=== PATIENT | male | born 1940 | race Caucasian/White ===

== ENCOUNTER 2016-10-20 09:01 | Inpatient (IN) | payer MEDICARE ==
[~2016-10-20] VITALS: Ht 180.3 cm; Wt 75.0 kg
[~2016-10-20 09:01] MED LIST: ARIC5TAB PO; BACT800T5 PO; BENA20 PO; CITA20TA4 PO; FIBETAB PO; NIFE1TAB86 PO; OMEG5CAP PO; OMEP20TA39 PO; PROS5TAB2 PO; SUCR1TAB PO; TAB-TAB PO; TAMS0.4C67 PO
[2016-10-20 09:03] VITALS: BP 216/108; PULSE 86; RESP 20; TEMP 97.7; O2SAT 93
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
[2016-10-20 09:39] VITALS: BP 184/106; PULSE 80; RESP 14; TEMP 98.3; O2SAT 94
[2016-10-20 10:30] LABS: AUTOMATED NEUTROPHIL # 16.3 TH/MM3 (1.8-7.7); BASOPHIL % 0.3 % (0.0-2.0); HEMATOCRIT 42.7 % (39.0-51.0); HEMO FLAGS DIFF FINAL; LYMPH % 4.5 % (9.0-44.0); LYMPHOCYTE # 0.8 TH/MM3 (1.0-4.8); MEAN CELL VOLUME 92.4 FL (80.0-100.0); MEAN CORPUSCULAR HEMOGLOBIN 31.5 PG (27.0-34.0); MONO % 5.8 % (0.0-8.0); NEUT % 89.4 % (16.0-70.0); PLATELET COUNT 354 TH/MM3 (150-450); RED BLOOD COUNT 4.62 MIL/MM3 (4.50-5.90); WHITE BLOOD COUNT 18.3 TH/MM3 (4.0-11.0)
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
[2016-10-20 10:38] LABS: PROTHROMBIN TIME - PATIENT 10.7 SEC (9.8-11.6)
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
[2016-10-20] MEDS ORDERED: SODIUM CHLOR 0.9% 1000 ML INJ 1,000 ML IV SCH (10:44)
[2016-10-20] MEDS ORDERED: NALOXONE HCL 0.4 MG/ML AMP IV PRN (10:45)
[2016-10-20] MEDS ORDERED: ACETAMINOPHEN/HYDROcodone 325 MG/5 MG TAB PO PRN (10:45)
[2016-10-20] MEDS ORDERED: HYDROmorphone HCL PF 1 MG/ML VIAL IV PUSH PRN (10:45)
[2016-10-20] MEDS ORDERED: ACETAMINOPHEN 325 MG TAB PO PRN (10:45)
[2016-10-20] MEDS ORDERED: SODIUM CHLORIDE 0.9% FLUSH 10 ML FLUSH IV FLUSH PRN (10:45)
[2016-10-20] MEDS ORDERED: ONDANSETRON HCL 4 MG/2 ML VIAL IVP PRN (10:45)
[2016-10-20] MEDS ORDERED: MAGNESIUM HYDROXIDE SUSP 30 ML CUP PO PRN (10:45)
[2016-10-20 10:52] LABS: BICARBONATE 26.5 MEQ/L (21.0-32.0)
[2016-10-20 10:53] LABS: POTASSIUM 4.4 MEQ/L (3.5-5.1)
[2016-10-20 11:30] VITALS: O2SAT 94
[2016-10-20] MEDS ORDERED: COLA100C3 PO (11:30)
[2016-10-20] MEDS ORDERED: HYDR-3516 PO (11:30)
[2016-10-20 12:12] VITALS: BP 213/129; PULSE 84; RESP 14; O2SAT 95
--- NOTE | 2016-10-20 12:22 | HHI.FF ---
Face to Face Verification Diagnosis: (1) Dementia (2) Fall (3) Clavicular fracture (4) Fracture, facial bones (5) Subarachnoid bleed Physical Therapy Order: Evaluate and Treat Occupational Therapy Order: Evaluate and Treat Home Health Nursing Order: Medical education Wound care and dressing changes Nursing assessment with vital signs Home Health Aide Order: To Assist In: Bathing and personal care, knot picker cloth and meal prep Stubber Order: To Evaluate: Support services Order: To Provide: Community services I have seen patient Dominik Bragg Jr Isaias on 10/20/16. My clinical findings support the need for the requested home health care services because: Fall, multiple facial fractures, right clavicular fracture, small subarachnoid hemorrhage and a fall risk. Patient lives by himself and unable to take care of himself Limited ability to care for self I certify that my clinical findings support that this patient is homebound because: Fall, multiple facial fractures, right clavicular fracture, small subarachnoid hemorrhage and a fall risk. Patient lives by himself and unable to take care of himself Unsteady gait/balance Gretel Roman MD October 20, 2016 12:22
--- NOTE | 2016-10-20 12:24 | HHI.PR ---
Addendum to Inpatient Note Additional Information ED physician contacted me regarding admitting Mr. Wright. We placed initial orders for admissions. I have not evaluated this patient myself. However, after further imaging studies were done, a SDH was detected which was reviewed by Neurosurgery. Discussed with ED provider again and she spoke to Dr. Akbar. Per neurosurgery, no hospital admission needed for this patient's SDH. Maxillofacial surgery also reviewed images and determined no in-patient intervention required. Thus, ED physician decided to discharge patient from the ED. Should the plan change, ED will let me know, we will be happy to help anyway we can. Gerardo Helms DO October 20, 2016 12:24
[2016-10-20 13:29] VITALS: BP 172/86
[2016-10-20] MEDS ORDERED: SODIUM CHLORIDE 0.9% FLUSH 10 ML FLUSH IV FLUSH SCH (21:00)
[2016-10-21 22:36] VITALS: O2SAT 96
== END 2016-10-20 13:30 | disposition home or self-care (01) | DRG 124 ==
LOC: NEPC 09:01 → NEDA 10:41
PROVIDERS: ADMIT Hospitalist; ATTEND Hospitalist
DX: S02.31XA Fracture of orbital floor, right side, initial encounter for closed fracture (principal); S06.6X0A Traumatic subarachnoid hemorrhage without loss of consciousness, initial encounter; S02.40CA Maxillary fracture, right side, initial encounter for closed fracture; F03.90 Unspecified dementia, unspecified severity, without behavioral disturbance, psychotic disturbance, mood disturbance, and anxiety; S02.2XXA Fracture of nasal bones, initial encounter for closed fracture; S42.021A Displaced fracture of shaft of right clavicle, initial encounter for closed fracture; I10 Essential (primary) hypertension; K21.9 Gastro-esophageal reflux disease without esophagitis; N40.0 Benign prostatic hyperplasia without lower urinary tract symptoms; F32.9 Major depressive disorder, single episode, unspecified; F41.9 Anxiety disorder, unspecified; V18.0XXA Pedal cycle driver injured in noncollision transport accident in nontraffic accident, initial encounter; Z85.828 Personal history of other malignant neoplasm of skin; Z87.891 Personal history of nicotine dependence
CPT/HCPCS: 70450; 70486; 80048; 85025; 85610; 86850; 86900; 86901

== ENCOUNTER → 2016-10-28 | Day surgery (SDC) | payer MEDICARE ==
[~2016-10-28] MED LIST changes: +BUPIVACAINE HCL PF 0.75% 30 ML VIAL ONE; +BUPIVACAINE/EPINEPHRINE 0.5% 50 ML VIAL ONE; +COLA100C3 PO; +GENTAMICIN SULFATE 80 MG/2 ML VIAL ONE; +HYDR-3516 PO; +LACTATED RINGER'S 1,000 ML BAG IV ONE; +LACTATED RINGER'S 1000 ML INJ 1,000 ML ONE; +LIDOCAINE 1.5%/EPINEPHrine 1:200,000 PF SOLN 30 ML AMP NERV BLOCK ONE; +MIDAZOLAM HCL 2 MG/2 ML VIAL ONE; +PROPOFOL 500 MG/50 ML BTL IV ONE; +ceFAZolin INJ 1,000 MG VIAL ONE
--- NOTE | 2016-10-29 13:40 | MP ---
cc: SPENCER RED DATE OF SURGERY October 28, 2016. PREOPERATIVE DIAGNOSIS Right clavicle fracture. POSTOPERATIVE DIAGNOSIS Right clavicle fracture. SURGEON Spencer Red MD P[employer]OT PLANT OPERATOR ЕЛЕНА Yuan The surgical procedure was assisted by my Advanced Registered Nurse Practitioner. My [employer] LABORER's presence was necessary throughout this case for the manipulation and positioning of the surgical extremity. My [employer] LABORER was assisting me throughout the duration of this procedure. The skill set of an Advanced Registered Nurse Practitioner was medically necessary to complete this procedure. During the surgical case, the surgical dental assistant was working at the back table and the Advanced Registered Nurse Practitioner was directly assisting me. PROCEDURE Right clavicle open reduction and internal fixation with application of cancellous allograft. ANESTHESIA General anesthesia and interscalene block. PROCEDURE The patient had regional anesthesia performed. He was brought back to the operative theater. General anesthesia was performed. He is placed into a beach-chair position with the right upper extremity prepped and draped in the usual sterile fashion. We did gave an infiltration of 0.25% Marcaine with epinephrine in case the block did not get fully medial enough to help with some pain control. I made an incision directly over the displaced clavicle fracture. We did see some slightly cloudy fluid around the fracture site likely which was resorbing hematoma. The fracture was in a somewhat subacute state, the tissues were still very thickened. The fracture was comminuted in the mid-aspect. As soon as we identified the fracture site, there was one piece of cortical bone which was removed and then saved but later on could not be placed back into position as it was too thin of a slice of bone. We thoroughly irrigated, used a rongeur as there was already development of granulation tissue for early callous formation around the fracture edges. The two major fragments were significantly displaced from each other. We then anatomically reduced these edges, obtaining as much cortical overlap as possible and trying to keep the fracture as anatomic as possible. We then applied a [employer] pre-contoured clavicle plate into position. This was an eight-holed, leaving the two central holes empty where the fracture which was mostly oblique in nature at this point was contained. We secured the plate using first nonlocking screws to hold the plate down to the bone well and then we used further locking screws to secure the plate as secure as possible. We used three screws on each side. We did irrigate again. We placed some cancellus chips both anterior and posterior where there was some slight deficiency. There was still a sliver of bone more anteriorly that was attached to the overlying fascia and deltoid musculature which was then incorporated into the repair using multiple #0 sutures of Vicryl. We then also repaired back to deep fascia both the anterior and posterior side covering the plate completely and helping to reattach a portion of the deltoid. We closed the skin with 2-0 Vicryl, followed by 3-0 nylon. The arm was placed into a sling and swath. Postoperative plan is early range of motion. MD IRAM Rice/IMANI /4:04 PM /1:30 PM
== END | disposition home or self-care (01) ==
LOC: ESDC 12:40
PROVIDERS: ATTEND Orthopaedic Surgery
DX: S42.001A Fracture of unspecified part of right clavicle, initial encounter for closed fracture (principal)
CPT/HCPCS: 00450; 01991; 23515; 64415; 73000; 76000; C1713; J0690; J2250; J7120; J1580